=== PATIENT | male | born 1950 | race Caucasian/White ===

== ENCOUNTER 2025-01-06 07:49 | Day surgery (SDC) | payer OTHER, SELFPAY ==
[2024-12-27 10:01] VITALS: BMI 42.9
[2024-12-27 10:23] LABS: % Basophils 0.8 % (0-2); % Eosinophils 2.2 % (0-6); % Immature Granulocytes 0.4 % (0-0.5); % Lymphocytes 21.1 % (20.5-51.1); % Neutrophils 67.5 % (42.2-75.2); Absolute Basophils 0.1 10^3/uL (0-0.2); Absolute Eosinophils 0.2 10^3/uL (0-0.7); Absolute Lymphocytes 1.9 10^3/uL (1.2-3.4); Absolute Monocytes 0.7 10^3/uL (0.1-0.6); Absolute Neutrophils 6.1 10^3/uL (1.4-6.5); Hematocrit 48.2 % (39.0-52.0); Mean Corp Hgb Conc. 33.2 g/dL (33.0-37.0); Mean Corpuscular Hgb 30.9 pg (27.0-31.0); Mean Corpuscular Volume 93.2 fL (80.0-94.0); Mean Platelet Volume 9.1 fL (7.4-10.4); Nucleated Red Blood Cells % 0 % (-); Platelet Count 197 10^3/uL (130-400); Red Blood Cell Count 5.17 10^6/uL (4.70-6.10); Red Cell Dist. Width 14.4 % (11.5-14.5); White Blood Cell Count 9.1 10^3/uL (4.8-10.8)
[2024-12-27 10:36] LABS: INR 1.31; PT 16.6 Sec (11.4-14.6)
[2024-12-27 12:21] LABS: ALT (SGPT) 17 U/L (0-50); AST (SGOT) 20 U/L (17-59); Albumin 4.5 g/dl (3.5-5.0); Alkaline Phosphatase 83 U/L (38-126); Blood Urea Nitrogen 20 mg/dl (9-20); Calcium 9.2 mg/dl (8.4-10.2); Carbon Dioxide 25 mmol/L (22-30); Chloride 105 mmol/L (98-107); Estimated Creatinine Clearance 83 ml/min; Glucose 106 mg/dl (70-99); Magnesium 2.3 mg/dl (1.6-2.3); Potassium 4.9 mmol/L (3.5-5.1); Sodium 143 mmol/L (135-145); Total Bilirubin 1.7 mg/dl (0.2-1.3); Total Protein 7.4 g/dl (6.3-8.2); eGFR > 60.00
[2025-01-06] VITALS (14 sets, daily range): BP systolic 99–143; BP diastolic 59–100; BMI 42.3
[2025-01-06 08:50] LABS: Glucose - Point of Care 103 mg/dl (70-99)
[2025-01-06 12:13] LABS: ACT-LR - POC 371 Seconds (116-155)
[2025-01-06 12:29] LABS: ACT-LR - POC 355 Seconds (116-155)
[2025-01-06 12:51] LABS: Glucose - Point of Care 123 mg/dl (70-99)
[2025-01-06 13:10] LABS: ACT-LR - POC 382 Seconds (116-155)
--- NOTE | 2025-01-06 13:51 | ITS.CL.ABL ---
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
Ablation
Procedure Report:
ELECTROPHYSIOLOGY ABLATION STUDY
DATE:: January 06, 2025����������������������������REFERRING: Dr. Jono Jordan
INDICATION: Persistent supraventricular tachycardia in the form of atrial fibrillation.��Prior Biotronik dual-chamber pacemaker underlying arrhythmia is slow atrial fibrillation and in sinus rhythm he does have [place] conduction
HISTORY: See H and P.��As above. He has had recent weight loss on Ozempic
ANTIARRHYTHMIC DRUG: Amiodarone
PRE-PROCEDURE FRANCISCO: No intracardiac thrombus and intracardiac ultrasound
PRESENTING RHYTHM: Atrial fibrillation
'TIME-OUT':��called and confirmed.
SEDATION/ANESTHESIA:��provided via the anesthesia department using general anesthesia (LMA).
INTRAVENOUS/ARTERIAL ACCESS:
Right femoral venous - 8Fr-upgraded to an 18fr short sheath. Intravascular dye injection confirmed iliac placement without dye extravasation, through this the 16.8fr transseptal sheath was placed.
Left femoral venous - 8 Fr, 6 Fr
Ultrasound guidance for bilateral femoral vein access was utilized by me to obtain access with demonstration of normal anatomy
CHADS-VASC Score:
HAS-Bled Score
PROCEDURE:
1.��A decapolar CS catheter was placed within the CS for mapping and pacing.��This was also used as the reference catheter for the 3-D map. Prior to procedure the device interrogated demonstrating slow atrial fibrillation and sinus rhythm [place]
conduction. For the duration of the procedure the patient was programmed to DDD 60 and at the end the procedure was put back on there outpatient settings of DDD�CLS 60 to 130 bpm
2. The intracardiac ultrasound catheter was positioned in the RA to identify the FO for targeting of transseptal puncture, assist��in identification of the pulmonary vein ostia, monitoring pre and post ablation pulmonary vein flow velocities,
monitoring for 'bubble' formation during RF application as a sign of thermal injury,��and to monitor for pericardial effusion during mapping and ablation procedure.���Left atrial size, LV ejection fraction, and pulmonary vein flows were monitored
pre and post ablation procedure. The other valves were inspected and found to be free of significant regurgitation or stenosis.
3.��Half of the calculated heparin bolus was administered prior to the first transeptal puncture.��Transseptal puncture was performed to diagnose RA and LA pressure so that safety of LA mapping and ablation could be further assessed, and to access
the left atrium and pulmonary veins for mapping and ablation.��This entailed advancing an 8 Fr SL-1 sheath with dilator into the superior vena cava and withdrawing both (monitoring intracardiac ultrasound, fluoroscopy and tip pressure) with the tip
oriented toward the atrial septum.��The fossa ovalis was engaged (indicated by sudden displacement of the sheath tip as well as tenting of the fossa seen on intracardiac ultrasound).��Left atrial access required a pass with the [place] needle
extended.��Left atrial catheter position was confirmed by pressure monitoring (RA mean pressure 8 mm Hg and LA mean presure 12 mm Hg), LA saturation (99%),��as well as fluoroscopy.��The sheath was advanced over the dilator and positioned in the left
atrium.��This procedure was repeated for the Agilis sheath.��The remainder of the calculated heparin bolus was administered and heparin was
infused to maintain ACT at 300 -350 seconds throughout the case.
4.��RA pacing was performed via the proximal decapolar poles and LA pacing was performed via the distal decapolar poles.
5. A decapolar catheter was first positioned at the His position for His Bundle recording which was tagged via the 3-D Navex sytem, and then passed to the RVA for RV pacing and recording.
6. The multipolar, Penta spline, and the 4 mm irrigated radiofrequency ablation catheter were placed in each of the LIPV, LSPV, RSPV and the RIPV.��
7.��Next, a 3-D map was created using Navex.���A 3-D reconstructed CT image was compared to the 3-D Navex map to assist in anatomic interpretation, mapping and ablation.��The CT image and the NavX image were fused.
8. Total 101 PFA lesions were given and all of them basket post each of the 4 pulmonary veins and floor opposed to the roof floor and posterior wall proper of the left atrium. We hydrated the patient with 1 L of normal saline given the amount of
lesions given. The patient had recurrent acute reconnection's of both the right and left pulmonary vein augusto. Additional lesions were given an Allis and basket post to these regions ultimately durably isolated the right veins in the posterior
wall but the left augusto kept reconnecting. We then placed radiofrequency lesions with a 4 mm TactiCath at 30 W, 42 degrees and up to 15-second lesions to the left augusto and the inferior posterior portion of the left inferior pulmonary vein with
short duration lesions of 5 to 10 seconds in that region. This rendered the left veins durably isolated as well as the posterior wall in the right veins. There was electroanatomic voltage on the inferoseptal portion of the left atrium but
otherwise the posterior wall was isolated durably with entrance and exit block confirmed.
9. An RF line was also placed at the IVC-TVA isthmus to interupt the potential typical atrial flutter circuit.��At the end of RF at this site, pacing from the lateral side of the line and the medial side of the line was performed to evaluate for
bidirectinal block.
TOTAL FLOURO TIME: 31.4 minutes
TOTAL RF DURATION: 2 minutes
REVERSAL OF HEPARIN: 40 mg of protamine, slow IV administration
COMPLICATIONS:
None
Intracardiac US shows no pericardial effusion post ablation.
SUMMARY:��
Complex left atrial mapping and ablation.
Isolation of all 4 pulmonary veins and the posterior wall as above. The patient had multiple reconnection's of both pulmonary vein augusto's and ultimately required radiofrequency energy to the left augusto for durable isolation. A total of 101 PFA
lesions were given.
RECOMMENDATIONS:
1. Admit to monitored bed..
2. Resume anticoagulation
3.��Continue amiodarone 1 month. Encouraged continued weight loss he has done quite well with weight loss as an outpatient
4.��Repeat BMP and CBC on January 07, 2025 given the amount of PFA lesions to make sure there is no significant hemolysis. We did hydrate the patient aggressively intraprocedure.
5. If the patient were to have recurrent atrial fibrillation would perform the patient's left atrial ablation with a focal RF�PF catheter to address the focal areas of reconnection as above.
Copy to: Dr. Jono Jordan
[2025-01-06 15:32] LABS: ACT-LR - POC > 397 Seconds (116-155)
--- NOTE | 2025-01-06 16:03 | CM ---
Reviewed chart. Met with Mr. Gomez to review discharge plans. He states prior to admission he resides alone in a one story home with one step to enter. He states prior to admission he was independent with ambulation and adls. He states he has a
CPAP Machine at home. He states he gets his medications from [facility]. The discharge plan is to return home when medically stable.
[2025-01-06] MEDS: LIPITOR 20 MG PO (18:41)
--- NOTE | 2025-01-06 19:28 | PTCARENOTE ---
Pt received from recovery area post PVI. Bilateral femoral vein sites with dry and intact dressings, figure of eight sutures removed as ordered, steristrip applied to RFV puncture site. Pt OOB to chair and bathroom with assist of one, slightly
unsteady, states he will call for assistance. Pt voiding without difficulty. Telemetry shows atrial paced rhythm.
--- NOTE | 2025-01-06 19:45 | PTCARENOTE ---
Assumed care on pt, aaox3, denies pain/discomfort or SOB. Left groin dsg CDI, right groin with small bruised area around,dsg intact with scant amount of blood underneath tegaderm dsg, area marked. No swelling noted, weak PP. Pt A-paced on the
monitor, regular rhythm, HR-60's. Pox 96% RA. Call blum within reach. Advised pt to call for assistance with ambulation.
[2025-01-06] MEDS: ELIQUIS 5 MG PO (20:29)
[2025-01-07 04:18] LABS: Hematocrit 44.6 % (39.0-52.0); Hemoglobin 14.8 g/dL (13.0-18.0); Mean Corp Hgb Conc. 33.2 g/dL (33.0-37.0); Mean Corpuscular Hgb 30.5 pg (27.0-31.0); Mean Corpuscular Volume 91.8 fL (80.0-94.0); Mean Platelet Volume 8.9 fL (7.4-10.4); Platelet Count 190 10^3/uL (130-400); Red Blood Cell Count 4.86 10^6/uL (4.70-6.10); Red Cell Dist. Width 14.5 % (11.5-14.5); White Blood Cell Count 13.1 10^3/uL (4.8-10.8)
[2025-01-07 04:23] VITALS: BP 124/72
[2025-01-07 04:24] VITALS: BMI 42.8
[2025-01-07 04:44] LABS: Blood Urea Nitrogen 25 mg/dl (9-20); Calcium 9.1 mg/dl (8.4-10.2); Carbon Dioxide 23 mmol/L (22-30); Chloride 106 mmol/L (98-107); Estimated Creatinine Clearance 99 ml/min; Glucose 132 mg/dl (70-99); Magnesium 1.8 mg/dl (1.6-2.3); Potassium 4.6 mmol/L (3.5-5.1); Sodium 140 mmol/L (135-145); eGFR > 60.00
--- NOTE | 2025-01-07 05:08 | PTCARENOTE ---
Pt with no c/o pain or discomfort throughout night, A- paced on the monitor with HR 60-80's. Right groin bruised area marked at start of shift and no increase in size noted at this time, no swelling noted. Left groin with CDI dressing, free of
swelling or bruising. EKG ordered for this morning obtained, labs drawn. Pt OOB to chair. Call blum within reach.
[2025-01-07 05:30] LABS: Hepatitis C Antibody Negative (Negative)
[2025-01-07 06:00] VITALS: BMI 42.8
[2025-01-07 07:15] VITALS: BP 116/69
[2025-01-07] MEDS: FARXIGA 10 MG PO (08:56)
[2025-01-07] MEDS: LASIX 20 MG PO (08:56)
[2025-01-07] MEDS: ALDACTONE 25 MG PO (08:56)
[2025-01-07] MEDS: ELIQUIS 5 MG PO (08:57)
[2025-01-07] MEDS: PACERONE 200 MG PO (08:59)
--- NOTE | 2025-01-07 09:26 | CM ---
Reviewed chart. Met with Mr. Gomez to review discharge plans. He states he is feeling well and maybe able to go home soon. Prior to admission he resides alone in a one story home with one step to enter. Prior to admission he was independent with
ambulation and adls. He has a CPAP Machine at home and no other DME in the home. He has a prescription plan and uses [facility]. The discharge plan is to return home when medically stable.
--- NOTE | 2025-01-07 10:09 | W.PN.CARDCBS ---
Addendum entered and electronically signed by Rayo Cota MD 01/07/25 10:50:
74-year-old man with persistent atrial fibrillation who underwent PVI/
PMH: Persistent atrial fibrillation on amiodarone, hypertension, hyperlipidemia, Biotronik pacemaker, HFpEF, sleep apnea, diabetes, agent orange exposure, morbid obesity, prior tobacco abuse
124/72, pulse 62, respiratory 20, afebrile, saturation is 96%, lungs clear, regular rate and rhythm, no obvious murmurs, puncture sites intact, not much edema
13.1, 14.8, BUN and creatinine are 25 and 1.0
ECG atrial pacing with prolonged AV conduction, anterolateral T wave inversions
Impression: See below
Plan: Stable status post PVI
Okay for discharge
Original Note:
Today's Communication / Plan
-
post ablation, stable for d/c home
Impression / Plan
-
PCP: Nicko Hurst DO
CDY: Jono Jordan MD
Impression:
Symptomatic persistent Afib
post PVI 01/06/25
SSS PPM 2015
HTN
HLD
chronic diastolic HFpEF
Moderate LVH
HAYES/Bipap
DM2
DDD
Agent orange exposure
Plan:
post ablation feels good
groins with some ecchymosis Right, soft
tele Apaced
OAC Eliquis
continue Amiodarone for 1 month then stop
HF continue spironolactone, empagliflozin, lasix
reinforced compliance with bipap, wt loss and ETOH abstinence
Activity restrictions reviewed
f/u Dr. Jordan in 3 mo
home today
Progress Note - Delicatessen Clerk
Subjective
Date of Service: January 07, 2025
denies cp, sob
Objective
Labs:
01/07/25 04:05
01/07/25 04:05
Labs
Hgb 14.8 g/dL (13.0-18.0) 01/07/25 04:05
Hct 44.6 % (39.0-52.0) 01/07/25 04:05
Plt Count 190 10^3/uL (130-400) 01/07/25 04:05
PT 16.6 Sec (11.4-14.6) H 12/27/24 10:13
INR 1.31 12/27/24 10:13
Sodium 140 mmol/L (135-145) 01/07/25 04:05
Potassium 4.6 mmol/L (3.5-5.1) 01/07/25 04:05
BUN 25 mg/dl (9-20) H 01/07/25 04:05
Creatinine 1.0 mg/dL (0.7-1.3) 01/07/25 04:05
Glucose 132 mg/dl (70-99) H 01/07/25 04:05
Vital Signs and I&O:
Vital Signs
Temp Pulse Resp BP Pulse Ox
97.7 F 65 20 116/69 96
01/07/25 07:15 01/07/25 08:45 01/07/25 07:15 01/07/25 07:15 01/07/25 08:54
Vital Signs
Temp Pulse Resp BP Pulse Ox
97.7 F 65 20 116/69 96
01/07/25 07:15 01/07/25 08:45 01/07/25 07:15 01/07/25 07:15 01/07/25 08:54
Intake & Output
01/05/25 01/06/25 01/07/25 01/08/25
06:59 06:59 06:59 06:59
Intake Total 2160 / 2160
Output Total 375 / 375
Balance 1785 / 1785
Physical Exam
Physical Exam
NAD< AOx3
S1, S2, RRR
CTAB, non labored, no wheeze
SNTND Bsx4
R groin with marked old drainage, and moderate ecchymosis
L groin c/d/i soft, no HT
[2025-01-07 11:01] VITALS: BP 116/86
--- NOTE | 2025-01-07 13:21 | W.DS.TRANS ---
DC Summary - Box Machine Operator
-
Discharge Instructions:
Discharge Diagnosis/Procedures Atrial fibrillation post ablation
Diet Low Cholesterol
Driving Restrictions No driving for 24 hours
Instructions:
Stand-Alone Forms: DC Instructions- Cath/EP Lab
Changes to Home Medications: No
Discharge Medications:
DC Medications w/original date entered in [facility]
amiodarone 200 mg tablet 200 mg PO QPM 12/23/24
apixaban 5 mg tablet 5 mg PO BID 12/23/24
atorvastatin 20 mg tablet 20 mg PO QPM 12/23/24
empagliflozin 25 mg tablet 25 mg PO DAILY 12/23/24
furosemide 20 mg tablet 20 mg PO DAILY 12/23/24
mecobalamin (vitamin B12) 1,000 mcg chewable tablet (B12 Active) 1,000 mcg PO HS 12/23/24
semaglutide 0.25 mg or 0.5 mg (2 mg/1.5 mL) subcutaneous pen injector (Ozempic) 0.5 mg SC WE 12/23/24
spironolactone 25 mg tablet 25 mg PO DAILY 12/23/24
valacyclovir 500 mg tablet 500 mg PO DAILYPRN PRN cold sore 12/23/24
psyllium 1 packet PO DAILYPRN PRN constipation 12/27/24
Home Medication Changes
Pending Results: No
--- NOTE | 2025-01-07 13:56 | PTCARENOTE ---
Pt seen by Jing Blanton NP adn . Telemetry and IV device removed. Discharge instructions reviewed with pt adn his girlfriend regarding activity and driving restrictions, wound care, medications and their possible side effects, reporting cares
and concerns and follow up appt's. Very good understadning verbalized. Pt escorted out via wheelchair and pt discharged to home.
== END 2025-01-07 12:55 | disposition home or self-care (01) ==
LOC: CATH 07:49
PROVIDERS: Nurse Practitioner Adult Health; ATTENDING PHYSICIAN Internal Medicine Cardiovascular Disease; FAMILY PHYSICIAN Student in an Organized Health Care Education/Training Program; OTHER PHYSICIAN Internal Medicine Cardiovascular Disease
DX: I48.19 Other persistent atrial fibrillation (principal); I47.10 Supraventricular tachycardia, unspecified; Z68.41 Body mass index [BMI] 40.0-44.9, adult; E66.01 Morbid (severe) obesity due to excess calories; I49.5 Sick sinus syndrome; Z95.0 Presence of cardiac pacemaker; I11.0 Hypertensive heart disease with heart failure; E78.5 Hyperlipidemia, unspecified; G47.33 Obstructive sleep apnea (adult) (pediatric); E11.9 Type 2 diabetes mellitus without complications; Z57.4 Occupational exposure to toxic agents in agriculture; Z79.01 Long term (current) use of anticoagulants; Z79.899 Other long term (current) drug therapy; Z87.891 Personal history of nicotine dependence; I50.32 Chronic diastolic (congestive) heart failure; Z86.0100 Personal history of colon polyps, unspecified; Z98.890 Other specified postprocedural states; Z79.85 Long-term (current) use of injectable non-insulin antidiabetic drugs
CPT/HCPCS: C1730; C1894; C1732; C2630; C1892; C1766; 36415; 75572; 80048; 80053; 82962; 83735; 85025; 85027; 85347; 85610; 86803; 86850; 86900; 86901; 93005; 93656; 93657; C1733; C1769; Q9967